=== PATIENT | female | born 1945 | race Caucasian/White ===

== ENCOUNTER 2017-09-07 09:58 | Outpatient (POV) | payer MEDICARE, MEDICAID, SELFPAY | END 2017-09-07 12:04 | disposition home or self-care (01) | PROVIDERS: Visit Provider Podiatrist | DX: M20.42 Other hammer toe(s) (acquired), left foot (principal); M20.41 Other hammer toe(s) (acquired), right foot; M25.571 Pain in right ankle and joints of right foot; L84 Corns and callosities | CPT/HCPCS: 11056; 99212 ==

== ENCOUNTER → 2018-05-21 14:38 | Outpatient (POV) | payer MEDICARE, MEDICAID, SELFPAY | PROVIDERS: PCP Podiatrist; Visit Provider Physician Assistant | DX: Z00.00 Encounter for general adult medical examination without abnormal findings (principal) ==